=== PATIENT | female | born 2000 | race Caucasian/White ===

== ENCOUNTER 2024-05-08 08:49 | Inpatient (IN) ==
[2024-05-08] MEDS ORDERED: ZOFRAN INJ 4 MG VIAL IVP PRN ×2 (09:38→11:58)
[2024-05-08] MEDS: LR 1,000 ML IV 1,000 ML IV ONE ×2 (09:52→13:13)
[2024-05-08] MEDS: NOZIN NASAL SANITIZER TP ONE (10:00)
[2024-05-08 10:24] LABS: BASOPHILS # (AUTO) 0.1 X10^3/uL (0.0-0.1); BASOPHILS % (AUTO) 0.8 % (0.2-1.0); EOSINOPHILS % (AUTO) 0.3 % (0.9-2.9); HEMATOCRIT 31.2 % (36.0-47.0); HEMOGLOBIN 10.4 g/dL (12.0-16.0); LYMPHOCYTES # (AUTO) 2.3 X10^3/uL (1.3-2.9); LYMPHOCYTES % (AUTO) 17.4 % (21.0-51.0); MEAN CORPUSCULAR HGB CONC 33.3 g/dL (33.0-35.0); MEAN PLATELET VOLUME 7.2 fL (7.4-11.0); MONOCYTES # (AUTO) 0.8 x10^3/uL (0.3-0.8); MONOCYTES % (AUTO) 6.1 % (0.0-13.0); NEUTROPHILS # (AUTO) 9.9 x10^3/uL (2.2-4.8); NEUTROPHILS % (AUTO) 75.4 % (42.0-75.0); PLATELET COUNT 367 X10^3/uL (150.0-450.0); RED BLOOD COUNT 3.72 X10^6/uL (3.5-5.4); RED CELL DISTRIBUTION WIDTH 14.5 % (11.6-16.5); WHITE BLOOD COUNT 13.1 X10^3/uL (3.6-10.0)
[2024-05-08] MEDS: ZOFRAN INJ 4 MG VIAL ONE ×2 (10:30→13:29)
[2024-05-08 10:34] LABS: ALANINE AMINOTRANSFERASE 11 Units/L (12-78); ALBUMIN 2.6 g/dL (3.4-5.0); ALKALINE PHOSPHATASE 168 Units/L (46-116); ASPARTATE AMINO TRANSFERASE 13 Units/L (15-37); BLOOD UREA NITROGEN 5 mg/dL (7-18); CALCIUM 8.8 mg/dL (8.5-10.1); CARBON DIOXIDE 23.6 mmol/L (21-32); CHLORIDE 104 mmol/L (98-107); COR CA(FOR HYPOALB) 9.9 mg/dL (8.5-10.1); CREATININE 0.43 mg/dL (0.55-1.02); GLUCOSE 81 mg/dL (65-99); POTASSIUM 3.7 mmol/L (3.5-5.1); SODIUM 138 mmol/L (136-145); TOTAL PROTEIN 6.8 g/dL (6.4-8.2); eGFR NON BLACK RACES > 60 (>60)
[2024-05-08] MEDS: ANCEF VIAL 1 GRAM ONE (11:25)
[2024-05-08] MEDS ORDERED: BENADRYL INJ 50 MG VIAL IVP PRN (11:58)
[2024-05-08] MEDS ORDERED: DILAUDID INJ IVP PRN (11:58)
[2024-05-08 12:08] LABS: BILIRUBIN,URINE NEGATIVE (NEGATIVE); BLOOD/HEMOGLOBIN,URINE NEGATIVE (NEGATIVE); GLUCOSE, URINE NEGATIVE (NEGATIVE); KETONES,URINE 2+ (NEGATIVE); LEUKOCYTE ESTERASE ,URINE 3+ (NEGATIVE); NITRITES,URINE NEGATIVE (NEGATIVE); PROTEIN,URINE 2+ (NEGATIVE); UROBILINOGEN,URINE 2+ (NORMAL)
[2024-05-08 12:12] LABS: COLOR,URINE DARK YELLOW (YELLOW)
[2024-05-08 12:18] LABS: APPEARANCE,URINE SLIGHTLY HAZY (CLEAR); RBC,URINE 0-2 /HPF (0-3); SQUAMOUS EPITHELIAL CELL,UR MODERATE /HPF (NEGATIVE)
[2024-05-08 12:19] LABS: BACTERIA,URINE 2+ /HPF (NEGATIVE)
[2024-05-08] MEDS: MARCAINE SPINAL ONE (13:29)
[2024-05-08] MEDS: PEPCID 20 MG VIAL ONE (13:29)
[2024-05-08] MEDS: LR 1,000 ML IV 1,000 ML IV PRN (13:30)
[2024-05-08] MEDS: PEPCID 20 MG VIAL IVP PRN (13:36)
[2024-05-08] MEDS: ZOFRAN INJ 4 MG VIAL IVP PRN (13:37)
[2024-05-08] MEDS: REGLAN INJ 10 MG VIAL IVP PRN (13:37)
[2024-05-08] MEDS: REGLAN INJ 10 MG VIAL ONE (13:39)
[2024-05-08] MEDS: ANCEF VIAL 1 GRAM IV PRN (13:39)
[2024-05-08] MEDS: EPHEDRINE SULFATE INJ ONE (13:39)
[2024-05-08] MEDS: XYLOCAINE 2 % (PLAIN) ONE (13:39)
[2024-05-08] MEDS: PRECEDEX INJ VIAL ONE (13:39)
[2024-05-08] MEDS: BICITRA 30 ML PO ONE (13:39)
[2024-05-08] MEDS: NS 100 ML IV 100 ML ONE (13:40)
[2024-05-08] MEDS: ANCEF VIAL 1 GRAM IVP ONE (13:40)
[2024-05-08] MEDS: OFIRMEV IV 1000 MG VIAL 1,000 MG/100 ML VIAL IV ONE (13:59)
[2024-05-08] MEDS: OFIRMEV IV 1000 MG VIAL 1,000 MG/100 ML VIAL IV PRN (14:00)
[2024-05-08] MEDS: NEO-SYNEPHRINE INJ IVP PRN (14:01)
[2024-05-08] MEDS: VERSED ONE (14:07)
[2024-05-08] MEDS: NEO-SYNEPHRINE INJ ONE (14:08)
[2024-05-08] MEDS: EPHEDRINE SULFATE INJ IVP PRN (14:11)
[2024-05-08] MEDS: PITOCIN ONE (14:24)
[2024-05-08] MEDS: VERSED IVP PRN (14:38)
[2024-05-08] MEDS ORDERED: PITOCIN IVP PRN (14:56)
[2024-05-08] MEDS ORDERED: OFIRMEV IV 1000 MG VIAL 1,000 MG/100 ML VIAL IV PRN (15:12)
[2024-05-08] MEDS ORDERED: D5 1/2 NS 1,000 ML 1,000 ML with PITOCIN 20 UNITS IV SCH (16:00)
--- NOTE | 2024-05-08 16:39 | OR.IMMED ---
IMMEDIATE POST-OP NOTE Immediate Post-Op Note Pre-Op Diagnosis: 37 weeks, maternal tachycardia, polyhydramnios, maternal obesi ty Post-Op Diagnosis: same Procedure: Primary LTCS Description of Procedure: Elective primary section Surgeon/Store Grocery Merchandiser: Virginia Veronica MD Findings: Live infant female Specimens Removed: Placenta Estimated Blood Loss: 750 Drains: Catheter (Ching) Complications: None Progress Notes: Patient transported to recovery in stable condition Discharge Progress Notes: Will be transported to floor Post Hospital Plans and Medications: Post op incision check in 1 week Final Diagnosis:
[2024-05-08] MEDS: MORPHINE SULFATE INJ 2 MG INJ IVP PRN (17:10)
[2024-05-08] MEDS: ZOFRAN INJ 4 MG VIAL IVP SCH (17:10)
[2024-05-09 05:31] LABS: BASOPHILS % (AUTO) 0.3 % (0.2-1.0); EOSINOPHILS % (AUTO) 0.2 % (0.9-2.9); HEMATOCRIT 25.9 % (36.0-47.0); HEMOGLOBIN 8.6 g/dL (12.0-16.0); LYMPHOCYTES # (AUTO) 1.9 X10^3/uL (1.3-2.9); LYMPHOCYTES % (AUTO) 12.4 % (21.0-51.0); MEAN CORPUSCULAR HGB CONC 33.3 g/dL (33.0-35.0); MEAN CORPUSCULAR VOLUME 83.9 fL (80.0-100.0); MEAN PLATELET VOLUME 7.2 fL (7.4-11.0); MONOCYTES # (AUTO) 1.1 x10^3/uL (0.3-0.8); MONOCYTES % (AUTO) 7.4 % (0.0-13.0); NEUTROPHILS # (AUTO) 12.3 x10^3/uL (2.2-4.8); NEUTROPHILS % (AUTO) 79.7 % (42.0-75.0); PLATELET COUNT 305 X10^3/uL (150.0-450.0); RED BLOOD COUNT 3.09 X10^6/uL (3.5-5.4); RED CELL DISTRIBUTION WIDTH 14.7 % (11.6-16.5); WHITE BLOOD COUNT 15.5 X10^3/uL (3.6-10.0)
[2024-05-09 05:40] LABS: BLOOD UREA NITROGEN 3 mg/dL (7-18); CALCIUM 8.5 mg/dL (8.5-10.1); CARBON DIOXIDE 26.3 mmol/L (21-32); CHLORIDE 103 mmol/L (98-107); CREATININE 0.43 mg/dL (0.55-1.02); GLUCOSE 98 mg/dL (65-99); POTASSIUM 3.8 mmol/L (3.5-5.1); SODIUM 138 mmol/L (136-145); eGFR NON BLACK RACES > 60 (>60)
[2024-05-09] MEDS ORDERED: PERCOCET TAB 5/325 MG ONE (08:09)
[2024-05-09] MEDS: PERCOCET TAB 5/325 MG PO PRN (08:18)
[2024-05-09] MEDS: HEMOCYTE PLUS PO SCH (08:19)
--- NOTE | 2024-05-09 08:30 | DR.UPDATE ---
H&P UPDATE (1) 37 weeks gestation of : History and Physical Update: Currently 37 weeks at the time of planned elective section. (2) BMI 45.0-49.9, adult: History and Physical Update: Her body mass index increases the difficulty of surgery, the increased risk of wound infection and other complications. (3) Tachycardia: History and Physical Update: Patient had a normal pulse at the time of admission. However the night before she had a pulse of 130s in the ER and later 115 on labor and delivery. (4) Polyhydramnios affecting in third trimester: History and Physical Update: Polyhydramnios carries the risk of abruption as well as cord prolapse. Review Yes Any changes to H&P?: No Patient was examined?: Yes
--- NOTE | 2024-05-09 08:42 | OB.OPNOTE ---
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 Operative technique: The risks and benefits were explained to the patient who was consented and taken to the operating room with IV running. Spinal anesthesia was administered and the patient was then repositioned in the dorsal supine position with a leftward tilt. She was sterilely prepped and draped in the usual sterile fashion with a Ching inserted into the bladder. A timeout was obtained. The Pfannenstiel skin incision was made transversely in an elliptical fashion 2 fingerbreadths above the symphysis pubis. The incision was carried down to the anterior rectus fascia coagulating small bleeders in the subcutaneous tissue at the same time. It the fascia was scored with the Bovie and the incision was extended with curved Cummings scissors in an upward elliptical fashion. The fascia was then tented up anteriorly in a cephalad direction. The Bovie was used to dissect this fascia from the anterior rectus muscles. The incision was then carried in a caudal direction by tenting up the lower aspect of the fascial incision again dissecting it with the Bovie away from the anterior rectus muscles. The rectus muscles were then in the midline the peritoneum was entered and using a bilateral stretching maneuver this incision was extended. The bladder blade was placed. The vesicouterine peritoneum was then tented up with a smooth forceps and dissected with the Metzenbaum scissors sharply, and a sponge was used to push the bladder in a caudal direction. The lower uterine transverse incision was made with a scalpel. The incision was extended with bilateral traction. An Allis clamp was used to rupture the amniotic membranes and clear fluid was noted. The head was delivered atraumatically through the myometrial incision and the cord was doubly clamped and cut and the infant handed off to pediatricians. The placenta was delivered with manual extraction the endometrial cavity was curetted with a moist laparotomy sponges and the cervix dilated with a sponge forceps. The lower uterine segment transverse incision was then closed with 0 Vicryl in a running and locked fashion. Small bleeders were coagulated with the Bovie. A second suture of the same type was used to imbricate over the original closure. The lower uterine segment was inspected for hemostasis and the uterus was then gently returned to the abdomen. The cul-de-sac was then irrigated and suctioned dry and again the lower uterine segment was inspected for adequate hemostasis. The peritoneum was then grasped with Jordyn clamps and reapproximated with 2-0 Vicryl. The muscle layer was irrigated and blotted dry and inspected for adequate hemostasis. The fascia was then reapproximated with 0 Vicryl in a running fashion. Judit's fascia was then irrigated and blotted dry and small bleeders coagulated with the Bovie. Judit's fascia was then reapproximated with interrupted sutures of 3-0 Vicryl. Crispin were applied to the skin as well as a sterile dressing. In this case a wound VAC was used. The patient was then returned to the dorsal supine position and transported to recovery room in stable condition.
[2024-05-09] MEDS: NS 100 ML IV 100 ML with VENOFER 400 MG IV ONE (11:00)
[2024-05-09] MEDS: NS 250 ML IV 250 ML IV ONE (11:00)
--- NOTE | 2024-05-09 11:51 | NOTE.PROBC ---
Progress Note OB-C/S Date Date of Exam: 05/09/24 Subjective Data Subjective: No complaints, decreased lochia. Tolerating diet. No N/V. Ambulating. Ching draining well. Patient states that she had pain all through the night and got a shot of morphine 1 time. Objective Data 05/09/24 05:05 05/09/24 05:05 Objective Data: female in no apparent distress. Lungs clear to auscultation bilaterally. Heart regular rate and rhythm. Abdomen soft nontender and fundus at umbilicus. Extremities no edema, clubbing or cyanosis. Assessment Assessment: day #1 status post primary elective section. Maternal tachycardia, likely due to pain which was not well-controlled. Also she is anemic after the surgery and has been started on iron. Plan (1) BMI 45.0-49.9, adult: Plan: Patient would benefit from weight loss. (2) Tachycardia: Plan: At the moment we will continue to monitor her blood pressure since her blood pressure is too low to add atenolol. Make sure pain is controlled. (3) delivery delivered: Plan: Continue with plan as outlined in orders. (4) Anemia: Plan: Patient is being given oral iron and an iron infusion is planned for
[2024-05-09] MEDS: BENADRYL CAP/TAB 25 MG PO PRN (21:30)
[2024-05-09] MEDS: MOTRIN TAB 600 MG PO PRN (22:09)
[2024-05-10] MEDS: D5 1/2 NS 1,000 ML 1,000 ML IV SCH (00:09)
[2024-05-10 05:46] LABS: HEMATOCRIT 24.8 % (36.0-47.0); HEMOGLOBIN 8.3 g/dL (12.0-16.0)
[2024-05-10] MEDS ORDERED: BENADRYL INJ 50 MG VIAL ONE (12:37)
[2024-05-10] MEDS: BENADRYL INJ 50 MG VIAL IVP ONE (12:43)
--- NOTE | 2024-05-10 12:45 | W.DIS.FURT ---
Summary of Discharge Discharge Summary of Date Date of Exam: 05/10/24 Admission Date Date of Admission: 05/08/24 Admission Diagnosis Hospital Course: Admit for elective section due to maternal tachycardia, polyhydramnios, unstable lie Vital Signs: Vital Signs (72 hours) 05/07/24 22:30 05/08/24 09:34 05/08/24 09:39 Temperature Pulse Rate 119 H 92 H Pulse Rate [Left Radial] Respiratory Rate Blood Pressure Blood Pressure [Left Arm] 119/82 O2 Sat by Pulse Oximetry 96 97 Oxygen Delivery Method 05/08/24 09:44 05/08/24 09:49 05/08/24 09:51 Temperature Pulse Rate 111 H 98 H 106 H Pulse Rate [Left Radial] Respiratory Rate Blood Pressure 126/72 Blood Pressure [Left Arm] O2 Sat by Pulse Oximetry 97 96 Oxygen Delivery Method 05/08/24 09:54 05/08/24 09:59 05/08/24 10:04 Temperature Pulse Rate 91 H 86 81 Pulse Rate [Left Radial] Respiratory Rate Blood Pressure Blood Pressure [Left Arm] O2 Sat by Pulse Oximetry 98 98 98 Oxygen Delivery Method 05/08/24 10:07 05/08/24 10:09 05/08/24 10:14 Temperature Pulse Rate 100 H 98 H 84 Pulse Rate [Left Radial] Respiratory Rate Blood Pressure 106/67 Blood Pressure [Left Arm] O2 Sat by Pulse Oximetry 98 97 Oxygen Delivery Method 05/08/24 10:19 05/08/24 10:21 05/08/24 10:24 Temperature Pulse Rate 96 H 83 71 Pulse Rate [Left Radial] Respiratory Rate Blood Pressure 108/63 Blood Pressure [Left Arm] O2 Sat by Pulse Oximetry 96 94 L 97 Oxygen Delivery Method 05/08/24 10:29 05/08/24 10:34 05/08/24 10:35 Temperature Pulse Rate 78 93 H 73 Pulse Rate [Left Radial] Respiratory Rate Blood Pressure 118/78 Blood Pressure [Left Arm] O2 Sat by Pulse Oximetry 99 99 Oxygen Delivery Method 05/08/24 10:39 05/08/24 10:44 05/08/24 10:49 Temperature Pulse Rate 83 88 72 Pulse Rate [Left Radial] Respiratory Rate Blood Pressure Blood Pressure [Left Arm] O2 Sat by Pulse Oximetry 99 99 100 Oxygen Delivery Method 05/08/24 10:50 05/08/24 11:24 05/08/24 11:25 Temperature Pulse Rate 76 91 H 107 H Pulse Rate [Left Radial] Respiratory Rate Blood Pressure 125/57 Blood Pressure [Left Arm] O2 Sat by Pulse Oximetry 100 93 L Oxygen Delivery Method 05/08/24 11:29 05/08/24 11:43 05/08/24 11:48 Temperature Pulse Rate 96 H 91 H 92 H Pulse Rate [Left Radial] Respiratory Rate Blood Pressure Blood Pressure [Left Arm] O2 Sat by Pulse Oximetry 96 100 100 Oxygen Delivery Method 05/08/24 11:50 05/08/24 11:53 05/08/24 11:58 Temperature Pulse Rate 100 H 85 88 Pulse Rate [Left Radial] Respiratory Rate Blood Pressure 115/67 Blood Pressure [Left Arm] O2 Sat by Pulse Oximetry 99 99 Oxygen Delivery Method 05/08/24 12:03 05/08/24 12:05 05/08/24 12:08 Temperature Pulse Rate 92 H 80 89 Pulse Rate [Left Radial] Respiratory Rate Blood Pressure 110/63 Blood Pressure [Left Arm] O2 Sat by Pulse Oximetry 98 99 Oxygen Delivery Method 05/08/24 12:13 05/08/24 12:18 05/08/24 12:20 Temperature Pulse Rate 96 H 107 H 83 Pulse Rate [Left Radial] Respiratory Rate Blood Pressure 115/69 Blood Pressure [Left Arm] O2 Sat by Pulse Oximetry 99 98 Oxygen Delivery Method 05/08/24 12:23 05/08/24 12:28 05/08/24 12:33 Temperature Pulse Rate 93 H 94 H 83 Pulse Rate [Left Radial] Respiratory Rate Blood Pressure Blood Pressure [Left Arm] O2 Sat by Pulse Oximetry 98 99 100 Oxygen Delivery Method 05/08/24 12:35 05/08/24 12:38 05/08/24 12:43 Temperature Pulse Rate 86 89 86 Pulse Rate [Left Radial] Respiratory Rate Blood Pressure 119/74 Blood Pressure [Left Arm] O2 Sat by Pulse Oximetry 99 98 Oxygen Delivery Method 05/08/24 12:48 05/08/24 12:51 05/08/24 12:53 Temperature Pulse Rate 93 H 93 H 97 H Pulse Rate [Left Radial] Respiratory Rate Blood Pressure 120/73 Blood Pressure [Left Arm] O2 Sat by Pulse Oximetry 98 99 Oxygen Delivery Method 05/08/24 12:58 05/08/24 13:03 05/08/24 13:05 Temperature Pulse Rate 106 H 99 H 96 H Pulse Rate [Left Radial] Respiratory Rate Blood Pressure 113/71 Blood Pressure [Left Arm] O2 Sat by Pulse Oximetry 100 100 Oxygen Delivery Method 05/08/24 13:08 05/08/24 13:13 05/08/24 13:18 Temperature Pulse Rate 102 H 101 H 98 H Pulse Rate [Left Radial] Respiratory Rate Blood Pressure Blood Pressure [Left Arm] O2 Sat by Pulse Oximetry 100 100 99 Oxygen Delivery Method 05/08/24 13:20 05/08/24 13:23 05/08/24 13:28 Temperature Pulse Rate 96 H 96 H 103 H Pulse Rate [Left Radial] Respiratory Rate Blood Pressure 120/70 Blood Pressure [Left Arm] O2 Sat by Pulse Oximetry 100 100 Oxygen Delivery Method 05/08/24 13:15 05/08/24 13:33 05/08/24 13:35 Temperature 97.4 F L Pulse Rate 95 H 131 H Pulse Rate [Left Radial] Respiratory Rate 20 Blood Pressure 117/72 Blood Pressure [Left Arm] O2 Sat by Pulse Oximetry 100 Oxygen Delivery Method 05/08/24 10:44 05/08/24 09:45 05/08/24 15:10 Temperature 97.8 F 97.0 F L Pulse Rate 125 H 96 H Pulse Rate [Left Radial] Respiratory Rate 20 16 Blood Pressure 126/72 121/56 Blood Pressure [Left Arm] O2 Sat by Pulse Oximetry 98 Oxygen Delivery Method Room Air Room Air 05/08/24 15:10 05/08/24 15:15 05/08/24 15:25 Temperature 97.0 F L Pulse Rate 96 H 94 H 95 H Pulse Rate [Left Radial] Respiratory Rate 16 17 17 Blood Pressure 121/56 110/55 106/56 Blood Pressure [Left Arm] O2 Sat by Pulse Oximetry 99 100 98 Oxygen Delivery Method Room Air Room Air Room Air 05/08/24 15:30 05/08/24 15:35 05/08/24 15:40 Temperature Pulse Rate 95 H 95 H 89 Pulse Rate [Left Radial] Respiratory Rate 18 18 18 Blood Pressure 102/59 103/56 112/56 Blood Pressure [Left Arm] O2 Sat by Pulse Oximetry 98 99 100 Oxygen Delivery Method Room Air Room Air Room Air 05/08/24 15:20 05/08/24 17:10 05/08/24 17:40 Temperature Pulse Rate 93 H Pulse Rate [Left Radial] Respiratory Rate 18 18 20 Blood Pressure 110/56 Blood Pressure [Left Arm] O2 Sat by Pulse Oximetry 98 Oxygen Delivery Method Room Air 05/08/24 16:00 05/08/24 16:15 05/08/24 16:30 Temperature 97.5 F L 97.4 F L 97.2 F L Pulse Rate 80 88 89 Pulse Rate [Left Radial] Respiratory Rate 18 18 18 Blood Pressure 118/73 113/62 115/64 Blood Pressure [Left Arm] O2 Sat by Pulse Oximetry Oxygen Delivery Method 05/08/24 16:45 05/08/24 17:00 05/08/24 18:00 Temperature 97.9 F 97.9 F 97.9 F Pulse Rate 86 80 87 Pulse Rate [Left Radial] Respiratory Rate 20 20 20 Blood Pressure 118/58 115/67 115/61 Blood Pressure [Left Arm] O2 Sat by Pulse Oximetry Oxygen Delivery Method 05/08/24 19:45 05/08/24 23:00 05/08/24 19:00 Temperature 97.7 F 97.3 F L 97.5 F L Pulse Rate 107 H Pulse Rate [Left Radial] 77 112 H Respiratory Rate 18 20 20 Blood Pressure 109/67 Blood Pressure [Left Arm] 134/78 106/60 O2 Sat by Pulse Oximetry 99 99 Oxygen Delivery Method 05/08/24 20:00 05/08/24 21:00 05/08/24 19:00 Temperature 97.5 F L 97.6 F Pulse Rate 116 H 115 H Pulse Rate [Left Radial] Respiratory Rate 20 18 Blood Pressure 103/59 106/62 Blood Pressure [Left Arm] O2 Sat by Pulse Oximetry Oxygen Delivery Method Room Air 05/09/24 00:14 05/09/24 00:44 05/09/24 03:58 Temperature 97.7 F Pulse Rate Pulse Rate [Left Radial] 106 H Respiratory Rate 20 20 18 Blood Pressure Blood Pressure [Left Arm] 111/66 O2 Sat by Pulse Oximetry 100 Oxygen Delivery Method 05/09/24 08:18 05/09/24 13:58 05/09/24 09:41 Temperature Pulse Rate 100 H Pulse Rate [Left Radial] Respiratory Rate 19 19 Blood Pressure Blood Pressure [Left Arm] O2 Sat by Pulse Oximetry 96 Oxygen Delivery Method 05/09/24 09:18 05/09/24 07:21 05/09/24 10:00 Temperature 98.2 F Pulse Rate Pulse Rate [Left Radial] 103 H Respiratory Rate 19 18 Blood Pressure Blood Pressure [Left Arm] 121/73 O2 Sat by Pulse Oximetry 96 Oxygen Delivery Method Room Air Room Air 05/09/24 11:21 05/09/24 14:58 05/09/24 15:00 Temperature 97.7 F 99.1 F Pulse Rate Pulse Rate [Left Radial] 93 H 96 H Respiratory Rate 18 20 17 Blood Pressure Blood Pressure [Left Arm] 127/69 110/55 O2 Sat by Pulse Oximetry 98 97 Oxygen Delivery Method Room Air Room Air 05/09/24 22:09 05/09/24 19:00 05/09/24 23:00 Temperature 97.9 F 97.5 F L Pulse Rate Pulse Rate [Left Radial] 120 H 111 H Respiratory Rate 17 16 18 Blood Pressure Blood Pressure [Left Arm] 120/72 105/60 O2 Sat by Pulse Oximetry 99 95 Oxygen Delivery Method Room Air Room Air 05/09/24 19:00 05/09/24 23:09 05/10/24 03:00 Temperature 97.5 F L Pulse Rate Pulse Rate [Left Radial] 105 H Respiratory Rate 18 18 Blood Pressure Blood Pressure [Left Arm] 106/61 O2 Sat by Pulse Oximetry 98 Oxygen Delivery Method Room Air Room Air 05/10/24 05:38 05/10/24 06:38 05/10/24 07:00 Temperature 98.1 F Pulse Rate Pulse Rate [Left Radial] 106 H Respiratory Rate 18 19 18 Blood Pressure Blood Pressure [Left Arm] 123/59 O2 Sat by Pulse Oximetry 96 Oxygen Delivery Method Room Air 05/10/24 08:29 Temperature Pulse Rate Pulse Rate [Left Radial] Respiratory Rate Blood Pressure Blood Pressure [Left Arm] O2 Sat by Pulse Oximetry Oxygen Delivery Method Room Air Labs: Laboratory Last Values WBC 15.5 X10^3/uL (3.6-10.0) H 05/09/24 05:05 RBC 3.09 X10^6/uL (3.5-5.4) L 05/09/24 05:05 Hgb 8.3 g/dL (12.0-16.0) L 05/10/24 05:20 Hct 24.8 % (36.0-47.0) L 05/10/24 05:20 MCV 83.9 fL (80.0-100.0) 05/09/24 05:05 MCH 28.0 pg (27.0-34.0) 05/09/24 05:05 MCHC 33.3 g/dL (33.0-35.0) 05/09/24 05:05 RDW 14.7 % (11.6-16.5) 05/09/24 05:05 Plt Count 305 X10^3/uL (150.0-450.0) 05/09/24 05:05 MPV 7.2 fL (7.4-11.0) L 05/09/24 05:05 Neut % (Auto) 79.7 % (42.0-75.0) H 05/09/24 05:05 Lymph % (Auto) 12.4 % (21.0-51.0) L 05/09/24 05:05 [place] % (Auto) 7.4 % (0.0-13.0) 05/09/24 05:05 Eos % (Auto) 0.2 % (0.9-2.9) L 05/09/24 05:05 Baso % (Auto) 0.3 % (0.2-1.0) 05/09/24 05:05 Neut # (Auto) 12.3 x10^3/uL (2.2-4.8) H 05/09/24 05:05 Lymph # (Auto) 1.9 X10^3/uL (1.3-2.9) 05/09/24 05:05 [place] # (Auto) 1.1 x10^3/uL (0.3-0.8) H 05/09/24 05:05 Eos # (Auto) 0.0 x10^3/uL (0.0-0.2) 05/09/24 05:05 Baso # (Auto) 0.0 X10^3/uL (0.0-0.1) 05/09/24 05:05 Absolute Nucleated RBC 0.0 /100WBC 05/09/24 05:05 Sodium 138 mmol/L (136-145) 05/09/24 05:05 Corrected Sodium TNP 05/09/24 05:05 Potassium 3.8 mmol/L (3.5-5.1) 05/09/24 05:05 Chloride 103 mmol/L (98-107) 05/09/24 05:05 Carbon Dioxide 26.3 mmol/L (21-32) 05/09/24 05:05 BUN 3 mg/dL (7-18) L 05/09/24 05:05 Creatinine 0.43 mg/dL (0.55-1.02) L 05/09/24 05:05 Est GFR (MDRD) Af Amer > 60 (>60) 05/09/24 05:05 Est GFR (MDRD) Non-Af > 60 (>60) 05/09/24 05:05 Glucose 98 mg/dL (65-99) 05/09/24 05:05 Calcium 8.5 mg/dL (8.5-10.1) 05/09/24 05:05 Corrected Calcium 9.9 mg/dL (8.5-10.1) 05/08/24 09:50 Total Bilirubin 0.50 mg/dL (0.2-1.0) 05/08/24 09:50 AST 13 Units/L (15-37) L 05/08/24 09:50 ALT 11 Units/L (12-78) L 05/08/24 09:50 Alkaline Phosphatase 168 Units/L (46-116) H 05/08/24 09:50 Total Protein 6.8 g/dL (6.4-8.2) 05/08/24 09:50 Albumin 2.6 g/dL (3.4-5.0) L 05/08/24 09:50 Globulin 4.2 g/dL (2.5-4.5) 05/08/24 09:50 Albumin/Globulin Ratio 0.6 Ratio (1.1-2.1) L 05/08/24 09:50 TSH 3rd Generation 1.628 uIU/mL (0.358-3.74) 05/09/24 05:05 Specimen Type Clean catch urine 05/08/24 11:45 Urine Color Dark yellow (YELLOW) 05/08/24 11:45 Urine Appearance Slightly hazy (CLEAR) 05/08/24 11:45 Urine pH 6.0 (5.0 - 8.0) 05/08/24 11:45 Ur Specific [place] 1.020 (1.000-1.030) 05/08/24 11:45 Urine Protein 2+ (NEGATIVE) 05/08/24 11:45 Urine Glucose (UA) Negative (NEGATIVE) 05/08/24 11:45 Urine Ketones 2+ (NEGATIVE) 05/08/24 11:45 Urine Blood Negative (NEGATIVE) 05/08/24 11:45 Urine Nitrite Negative (NEGATIVE) 05/08/24 11:45 Urine Bilirubin Negative (NEGATIVE) 05/08/24 11:45 Urine Urobilinogen 2+ (NORMAL) 05/08/24 11:45 Ur Leukocyte Esterase 3+ (NEGATIVE) 05/08/24 11:45 Urine RBC 0-2 /HPF (0-3) 05/08/24 11:45 Urine WBC 10-20 /HPF (0-5) A 05/08/24 11:45 Ur Squamous Epith Cells Moderate /HPF (NEGATIVE) 05/08/24 11:45 Urine Bacteria 2+ /HPF (NEGATIVE) 05/08/24 11:45 Ur Culture Indicated? No/not indicated 05/08/24 11:45 Urine Opiates Screen Negative (NEG=<300) 05/08/24 12:01 Urine Methadone Screen Negative (NEG=<300) 05/08/24 12:01 Ur Barbiturates Screen Negative (NEG=<200) 05/08/24 12:01 Ur Phencyclidine Scrn Negative (NEG=<25) 05/08/24 12:01 Ur Amphetamines Screen Negative (NEG=<1000) 05/08/24 12:01 U Benzodiazepines Scrn Negative (NEG=<200) 05/08/24 12:01 Urine Cocaine Screen Negative (NEG=<300) 05/08/24 12:01 U Marijuana (THC) Screen Negative (NEG=<50) 05/08/24 12:01 RPR Nonreactive (NONREACTIVE) 05/08/24 10:05 HIV 1&2 Antibody Non reactive (NONREACTIVE) 05/08/24 10:05 HIV P24 Antigen Non reactive (NONREACTIVE) 05/08/24 10:05 Blood Type O POSITIVE 05/08/24 10:05 Antibody Screen Negative 05/08/24 10:05 Reason For Visit: C SECTION Discharge Date Discharge Date: 05/10/24 Discharge Diagnosis All Active Problems (Updated 05/09/24 @ 11:50 by Virginia Veronica MD) Anemia (Acute) delivery delivered (Acute) Polyhydramnios affecting in third trimester (Acute) Tachycardia (Acute) 37 weeks gestation of (Acute) False labor after 37 completed weeks of gestation (Acute) Decreased movement during (Acute) Influenza A (Acute) Infection of urinary tract during (Acute) BMI 45.0-49.9, adult (Acute) Depression (Acute) Anxiety (Acute) Urinary tract infection affecting (Acute) Polycystic ovarian syndrome (Acute) Plan of Treatment: Continue with present treatment and follow up plan. Pt is to keep follow up appointment as instructed and take medications as ordered. Discharge Medications Discharge Medications: povidone-iodine [From Betadine] Allergy (Verified 05/08/24 18:45) shellfish derived Allergy (Verified 05/02/24 11:19) New Prescriptions ibuprofen 600 mg tablet 600 mg PO TID PRN 3 days #30 tabs 05/10/24 [Rx] oxycodone-acetaminophen 5 mg-325 mg tablet 1 tab PO Q4H PRN 7 days #28 tabs 05/10/24 [Rx] Discharge Disposition Assessment: Stable Discharge Plan Discharge Plan Hospital Course: Admit for elective section due to maternal tachycardia, polyhydramnios, unstable lie Patient Disposition: HOME, SELF-CARE Condition: Stable Health Concerns: Post Hospitalization: new medications and changes needed to prevent readmission or further decline. Pt educated and given instructions on all concerns. Care Plan Goals: Problem: Potential for Infection Goal: Mother will remain free from infection. Verbalizes preventable risk. Instructions: Follow provided instructions. Follow up with primary physician as directed. Contact primary care physician or report to the closest Emergency Room if condition worsens. Plan of Treatment: Continue with present treatment and follow up plan. Pt is to keep follow up appointment as instructed and take medications as ordered. Assessment: Stable Prescriptions: New oxycodone-acetaminophen 5-325 mg Tablet 1 tab PO Q4H MDD 4 PRN7 Days Qty: 28 0RF ibuprofen 600 mg Tablet 600 mg PO TID PRN3 Days Qty: 30 1RF No Action NK Follow ups/Referrals Follow ups/Referrals: Virginia Veronica MD [STAFF PHYSICIAN] - 05/16/24 1:00 pm Instructions Instructions: How to Use an Incentive Spirometer, Baby Blues, and Breast Care, Care After Delivery, Preventing Problems After Surgery, How to Prevent Constipation After Surgery Stand Alone Forms: Find Help Web Site, Post Hospital Follow Up Care
[2024-05-10 12:53] VITALS: O2SAT 98
--- NOTE | 2024-05-10 13:13 | NOTE.PROBC ---
Progress Note OB-C/S Date Date of Exam: 05/10/24 Subjective Data Subjective: No complaints, decreased lochia. Tolerating diet. No N/V. Ambulating well. Ching draining well. Pain under good control with percocet, ibuprofen. No SOB. Objective Data 05/10/24 05:20 05/09/24 05:05 Objective Data: CV= RRR no MRG Lungs=CTA Bilaterally Abd=(+) BS, soft, ND, appropriately tender near incision. Bandage removed. Incision clean/dry/intact, no erythema, no bleeding, no discharge. Dermabond/Stitches intact. Fundus firm/NT/ at { } cm below umbilicus. Ext= No edema, NT, No Cords. Graduated Compression Stockings/Sequential Compression Devices Bilaterally. Assessment Assessment: Post day 2 status post . Plan (1) BMI 45.0-49.9, adult: Plan: Encourage weight loss. (2) Tachycardia: Plan: Continue to monitor pulse. BP low normal on bedrest and with pain meds. (3) delivery delivered: Plan: Continue post op post care. Discuss control method. RTC 1 week incision check. (4) Anemia: Plan: Iron infusion plus oral iron.
[2024-05-10 14:30] VITALS: RESP 20
[2024-05-10 17:16] VITALS: BP 122/64; PULSE 111; TEMP 97.9
== END 2024-05-10 18:00 | disposition home or self-care (01) | DRG 788 ==
LOC: LD 08:49 → MED/SURG 15:43
PROVIDERS: ADMIT Obstetrics & Gynecology; ATTEND Obstetrics & Gynecology